=== PATIENT | female | born 1960 | race African-American/Black ===

== ENCOUNTER 2019-10-24 09:04 | Day surgery (SDC) | payer OTHER ==
[2019-10-23 09:54] VITALS: BMI 28.9
[2019-10-24] MEDS ORDERED: LIDOCAINE HCL 1%, 10 MG/ML (20ML VIAL) ONE (10:42)
[2019-10-24] MEDS ORDERED: MIDAZOLAM HCL 2 MG/2 ML SINGLE DOSE VIAL ONE (11:44)
[2019-10-24] MEDS ORDERED: ceFAZolin 2 GRAM PREMIX BAG IVPB ONE (12:23)
[2019-10-24] MEDS ORDERED: LIDOCAINE HCL 1%, 10 MG/ML (20ML VIAL) NR ONE (12:27)
[2019-10-24] MEDS ORDERED: LIDOCAINE HCL/PF 2% SDV 5ML VIAL ONE (12:50)
[2019-10-24] MEDS ORDERED: ceFAZolin SODIUM 1 GM VIAL ONE (12:50)
[2019-10-24] MEDS ORDERED: DEXAMETHASONE SOD PHOSPHATE 4 MG/1 ML VIAL ONE (12:50)
[2019-10-24] MEDS ORDERED: KETOROLAC TROMETHAMINE 30 MG/1 ML VIAL ONE (13:27)
--- NOTE | 2019-10-24 15:06 | OP ---
DATE OF OPERATION: 10/24/2019 PREOPERATIVE DIAGNOSIS: Right breast ductal carcinoma in situ. POSTOPERATIVE DIAGNOSIS: Right breast ductal carcinoma in situ. PROCEDURE: Right breast wire-localized lumpectomy. SURGEON: Lorena Ragland MD ANESTHESIA: General. ESTIMATED BLOOD LOSS: Minimal. COMPLICATIONS: None. This is a sterile procedure. INDICATIONS FOR PROCEDURE: The patient presented for a screening mammography and an ultrasound. The ultrasound noted a 5-mm nodule that was in the outer right breast and needle biopsy revealed an area of low-grade DCIS. My recommendation was an excision with a lumpectomy. The procedure was discussed with all the questions answered. PROCEDURE IN DETAIL: Patient was brought to [facility] in [place] and was taken to Radiology where localized a clip in the outer right breast. She was then brought up to the operating room. After induction of general anesthesia and IV antibiotics, the right breast was prepped and draped in the usual sterile fashion. The area in the outer right breast was anesthetized with 1% lidocaine without epinephrine. A radial incision was made in the right 9 o'clock location and a wire was used as a guide to get down to the area of interest. This was excised en bloc, tagged with a long stitch lateral, short stitch superior, sent as a right breast lumpectomy for specimen radiograph. The specimen radiograph showed the clip and the wire to be intact within the specimen. The specimen was then sent to Pathology for permanent section. Hemostasis was assured with electrocautery. The parenchyma was approximated with interrupted 2-0 Vicryl. Skin approximated with interrupted 3-0 Vicryl running and 4-0 Prolene. A sterile dressing with Tegaderm and 4 x 4's applied. She tolerated procedure well, was extubated on the operating room table, taken to recovery in good condition. Jeffry [id number]
[2019-10-24] MEDS ORDERED: oxyCODONE HCL 5 MG TABLET PO PRN (15:17)
[2019-10-24] MEDS ORDERED: ONDANSETRON 4 MG/2 ML VIAL IVPUSH PRN (15:17)
[2019-10-24] MEDS ORDERED: LACTATED RINGERS SOLUTION 1,000 ML IV SCH (15:30)
[2019-10-24 16:36] VITALS: BP 130/77; PULSE 73; TEMP 97.9
--- NOTE | 2019-10-27 17:12 | PATH ---
Surgical Pathology Report Patient Name: ROD PENA [facility]. Rec. #: [id number] /Age/Gender: 1960 (Age: 58) / F Account: [id number] Location: [facility] SURGICAL Taken: 10/24/2019 Received: 10/24/2019 Reported: 10/27/2019 Physicians: Lorena Ragland M.D. Specimen(s) Received RIGHT BREAST MASS Clinical History DCIS Final Diagnosis RIGHT BREAST LUMPECTOMY: DUCTAL CARCINOMA IN SITU (DCIS), LOW NUCLEAR GRADE, CRIBRIFORM PATTERN. DCIS PRESENT IN 1 OF 9 SLIDES. ESTIMATED SIZE OF DCIS IS AT LEAST 3 MM. SURGICAL MARGINS ARE NEGATIVE FOR CARCINOMA. DCIS IS AT 1.2 CM FROM THE CLOSEST MARGIN (SUPERIOR MARGIN). REMAINING BREAST TISSUE SHOW FIBROADENOMA, SCLEROSING ADENOSIS, DILATED DUCTS, AND MICROCALCIFICATIONS. REACTIVE CHANGES AT PRIOR BIOPSY SITE IDENTIFIED. PATHOLOGIC STAGE (pTNM): pTis pNX ALSO SEE SURGICAL PATHOLOGY CANCER CASE SUMMARY BELOW. Comment: Immunohistochemical stains (block 1) performed and interpreted at [facility] show the following results: smooth muscle myosin heavy chain and p63 show intact myoepithelial cell layer in the areas of sclerosing adenosis and ductal carcinoma in situ. Positive and negative controls (internal if applicable) show appropriate results. Comments DCIS of the Breast: Surgical Pathology Cancer Case Summary (Based on AJCC TNM 8 th edition) Procedure _x_ Excision (less than total mastectomy) Specimen Laterality _x_ Right Size (Extent) of DCIS Estimated size (extent) of DCIS (greatest dimension using gross and microscopic evaluation): at least (millimeters) 3 mm Number of blocks with DCIS: 1 Number of blocks examined: 9 Histologic Type _x_ Ductal carcinoma in situ Architectural Patterns _x_ Cribriform Nuclear Grade _x_ Grade I (low) Necrosis _x_ Not identified Margins _x_ Uninvolved by DCIS Distance from closest margin (millimeters): 12 mm Specify closest margin: Superior margin Regional Lymph Nodes _x_ No lymph nodes submitted or found Pathologic Stage Classification (pTNM, AJCC 8th Edition) Primary Tumor (pT) _x_ pTis (DCIS): Ductal carcinoma in situ Regional Lymph Nodes (pN) _x_ pNX Microcalcifications _x_ Present in nonneoplastic tissue Biomarker Studies Results of ER and WA studies performed on this specimen (block# 1)) at [facility] are as follows: ER (clone [id number] mouse monoclonal antibody by [employer]): 100% nuclear staining with strong intensity (positive). WA (clone16 mouse monoclonal antibody by [employer]): 100% nuclear staining with strong intensity (positive). Positive and negative controls (internal if applicable) show appropriate results. Formalin fixation is within current ASCO/CAP recommendations for ER, WA and Her2 testing. Cold ischemic time not given. Electronically Signed Kwan Ramirez M.D. Gross Description Received fresh on an AccuGrid, labeled "right breast lumpectomy," is a 6.0 x 5.5 x 2.4 cm. tejeda-yellow, irregular, portion of fibroadipose tissue with a needle localization wire present. There is a short suture marking the superior aspect and a long suture marking the lateral aspect, per the surgeon. There is no skin or nipple present. The specimen is inked as follows: superior and lateral blue; inferior green; medial yellow; anterior red; deep black. The specimen is serially sectioned from lateral to medial. Sectioning reveals a 1.5 x 1.0 x 1.0 cm ill-defined focus of firm fibrous tissue containing a bullard metallic biopsy clip. No definitive mass is identified. The remaining breast parenchyma displays multifocal white fibrous tissue. Bicycle Fitter sections are submitted in 9 cassettes as follows: 1-3-firm fibrous tissue containing biopsy clip sequentially submitted from lateral to medial (each with superior and inferior margins); 4-anterior margin; 5-deep margin; 6-lateral margin; 7-medial margin; 8-uninvolved fibrous tissue with superior margin; 9-uninvolved fibrous tissue with inferior margin. Total formalin fixation time: Approximately 6 hours DL10/24/201910/24/2019
== END 2019-10-24 15:50 | disposition home or self-care (01) ==
LOC: JASU-SURG 09:04
PROVIDERS: ATTEND Surgery
PROC: 0HBT0ZZ Excision of Right Breast, Open Approach (ICD-10-PCS; principal; 2019-10-24 11:00)
DX: D05.11 Intraductal carcinoma in situ of right breast (principal); E11.9 Type 2 diabetes mellitus without complications; Z79.84 Long term (current) use of oral hypoglycemic drugs
CPT/HCPCS: 19281; 76098-TC-FY; 82962; 88307-TC; 88341-TC; 88342-TC; 94760